=== PATIENT | female | born 1970 | race Native Hawaiian/Other Pacific Islander ===

== ENCOUNTER 2017-04-20 11:59 | Emergency (ER) | payer OTHER ==
[~2017-04-20] VITALS: Ht 167.6 cm; Wt 99.8 kg
[2017-04-20] MEDS ORDERED: LORA1TAB17 PO (12:26)
[2017-04-20] MEDS ORDERED: ARIPIPRAZOLE5 MG PO (12:26)
[2017-04-20] MEDS ORDERED: FLUOXETINE20 MG PO (12:26)
[2017-04-20] MEDS ORDERED: TRAM50TA PO (12:27)
[2017-04-20] MEDS ORDERED: ACET-689 PO (12:28)
[2017-04-20] MEDS ORDERED: GABA400C2 PO (12:28)
[2017-04-20] MEDS ORDERED: CYCL10TA35 PO (12:29)
== END 2017-04-20 13:34 | disposition home or self-care (01) ==
LOC: ED 11:59
DX: F32.89 Other specified depressive episodes (principal); F41.9 Anxiety disorder, unspecified
CPT/HCPCS: 96372; 99282; J2060